=== PATIENT | female | born 1965 | race Caucasian/White ===

== ENCOUNTER 2017-04-04 15:01 | Emergency (ER) | payer BC ==
[2017-04-04] MEDS ORDERED: Ketorolac 60 MG/2 ML SDV IM ONE (15:19)
[2017-04-04] MEDS ORDERED: Ondansetron 4 MG/2 ML SDV IVPUSH ONE (15:23)
--- NOTE | 2017-04-04 15:23 | EDM.PDOC ---
ED HPI GENERAL MEDICAL PROBLEM - General Chief Complaint: Back Pain or Injury Stated Complaint: BACK PAIN Time Seen by Provider: 04/04/17 15:19 Source of Information: Reports: Patient History Limitations: Reports: No Limitations - History of Present Illness INITIAL COMMENTS - FREE TEXT/NARRATIVE: HISTORY AND PHYSICAL: [51-year-old female who presents with low back pain she awakened with this] History of Present Illness: [] Patient states that she has had herniated disks in the past and has history of this. Relates no specific injury that occurred. Review of Systems: As per history of present illness and below otherwise all systems reviewed and negative. Past medical history: As per history of present illness and as reviewed below otherwise noncontributory. Surgical history: As per history of present illness and as reviewed below otherwise noncontributory. Social history: No reported history of drug or alcohol abuse. Family history: As per history of present illness and as reviewed below otherwise noncontributory. Physical exam: Patient alert oriented sitting and moving quite carefully. Answers questions in full sentences without any shortness of breath. HEENT: Atraumatic, normocehpalic, pupils reactive, negative for conjunctival pallor or scleral icterus, mucous membranes moist, throat clear, neck supple, nontender, trachea midline. Lungs: Clear to auscultation, breath sounds equal bilaterally, chest non tender. Heart: S1S2, regular, negative for clicks, rubs, or JVD. Abdomen: Soft, nondistended, nontender. Negative for masses or hepatossplenmegaly. Negative for costovertebral tenderness. Bilateral to lower back L5-S1 area not tender on vertebrae itself but right and left of the vertebrae extending down buttocks. no radiculopathy to the lower extremity. Pelvis: Stable nontender. Genitourinary: Deferred. Rectal: Deferred Extremities: Atraumatic, negative for cords or calf pain. Neurovascular unremarkable. Neuro: Awake, alert, oriented. Cranial nerves II through XII unremarkable. Cerebellum unremarkable. Motor and sensory unremarkable throughout. Exam nonfocal. Diagnostics: [] Therapeutics: [Zofran by mouth Toradol IM Norflex IM] Impression: [Back pain] Plan: []Is charge to home Flexeril Diclofenac Follow-up with your medical provider Definitive disposition and diagnosis as appropriate pending reevaluation and review of above. Bilateral Lower Back Pain Score (Numeric/FACES): 8 - Related Data Allergies Allergy/AdvReac Type Severity Reaction Status Date / Time acetaminophen [From Percocet] Allergy Bleeding Verified 04/04/17 15:19 oxycodone HCl [From Percocet] Allergy Bleeding Verified 04/04/17 15:19 Penicillins Allergy Hives Verified 04/04/17 15:19 Sulfa (Sulfonamide Allergy Hives Verified 04/04/17 15:19 Antibiotics) IV dye Allergy Anaphylactic Uncoded 04/04/17 15:19 Shock Home Meds: Home Meds . [No Known Home Meds] 11/18/14 [History] Past Medical History - Past Surgical History Other GI Surgeries/Procedures: Diaphragmatic Hernia at Social & Family History - Tobacco Use Smoking Status *Q: Never Smoker Second Hand Smoke Exposure: No - Alcohol Use Days Per Week of Alcohol Use: 0 - Recreational Drug Use Recreational Drug Use: No ED ROS GENERAL - Review of Systems Review Of Systems: ROS reveals no pertinent complaints other than HPI. ED EXAM,LOWER BACK PAIN/INJURY - Physical Exam Exam: See Below (see dictation) Course - Vital Signs Last Recorded V/S: Last Vital Signs Temp 36.4 C 04/04/17 15:15 Pulse 118 H 04/04/17 15:15 Resp 18 04/04/17 15:15 BP 142/108 H 04/04/17 15:15 Pulse Ox 98 04/04/17 15:15 - Orders/Labs/Meds Orders: Active Orders 24 hr Category Date Time Status Orphenadrine [Norflex] Med 04/04/17 15:30 Active 60 mg IM Q12H Medication Orders Orphenadrine Citrate (Norflex) 60 mg IM Q12H CRISTO Last Admin: 04/04/17 15:44 Dose: 60 mg Meds: Medications Generic Name Dose Route Start Last Admin Trade Name Freq PRN Reason Stop Dose Admin Orphenadrine Citrate 60 mg 04/04/17 15:30 04/04/17 15:44 Norflex IM 60 mg Q12H CRISTO Administration Discontinued Medications Generic Name Dose Route Start Last Admin Trade Name Freq PRN Reason Stop Dose Admin Ketorolac Tromethamine 60 mg 04/04/17 15:19 04/04/17 15:44 Toradol IM 04/04/17 15:20 60 mg ONETIME ONE Administration Ondansetron HCl 4 mg 04/04/17 15:23 Zofran IVPUSH 04/04/17 15:24 ONETIME ONE Ondansetron HCl 4 mg 04/04/17 15:40 04/04/17 15:45 Zofran Odt PO 04/04/17 15:41 4 mg ONETIME ONE Administration Ondansetron HCl Confirm 04/04/17 15:40 Zofran Odt Administered 04/04/17 15:41 Dose 4 mg .ROUTE .STK-MED ONE Departure - Departure Time of Disposition: 15:55 Disposition: Home, Self-Care 01 Condition: Good Clinical Impression: Back pain Qualifiers: Back pain location: low back pain Chronicity: acute Back pain laterality: bilateral Sciatica presence: without sciatica Qualified Code(s): M54.5 - Low back pain - Discharge Information Instructions: Back Pain, Adult, [id number] Referrals: PCP,None [Primary Care Provider] - Forms: ED Department Discharge Additional Instructions: The following information is given to patients seen in the emergency department who are being discharged to home. This information is to outline your options for follow-up care. We provide all patients seen in our emergency department with a follow-up referral. The need for follow-up, as well as the timing and circumstances, are variable depending upon the specifics of your emergency department visit. If you don't have a primary care physician on staff, we will provide you with a referral. We always advise you to contact your personal physician following an emergency department visit to inform them of the circumstance of the visit and for follow-up with them and/or the need for any referrals to a consulting specialist. The emergency department will also refer you to a specialist when appropriate. This referral assures that you have the opportunity for followup care with a specialist. All of these measure are taken in an effort to provide you with optimal care, which includes your followup. Under all circumstances we always encourage you to contact your private physician who remains a resource for coordinating your care. When calling for followup care, please make the office aware that this follow-up is from your recent emergency room visit. If for any reason you are refused follow-up, please contact the [facility] emergency department at and asked to speak to the emergency department charge nurse. Please follow-up with your medical provider Prescription has been written for Flexeril 10 mg 1-tablet 3 times a day when necessary muscle spasm #15 Diclofenac 75 mg twice a day when necessary pain #14 no refill - My Orders Last 24 Hours: My Active Orders 04/04/17 15:30 Orphenadrine [Norflex] 60 mg IM Q12H - Assessment/Plan Last 24 Hours: My Active Orders 04/04/17 15:30 Orphenadrine [Norflex] 60 mg IM Q12H
[2017-04-04] MEDS ORDERED: Ondansetron 4 MG Tab.DIS ONE (15:40)
[2017-04-04] MEDS ORDERED: Ondansetron 4 MG Tab.DIS PO ONE (15:40)
[2017-04-04 16:22] VITALS: BP 130/91
== END 2017-04-04 16:20 | disposition home or self-care (01) ==
LOC: MW.ED 15:01
DX: M54.5 Low back pain (principal); Z88.6 Allergy status to analgesic agent; Z88.0 Allergy status to penicillin; Z88.2 Allergy status to sulfonamides; Z88.5 Allergy status to narcotic agent
CPT/HCPCS: 96372; 99283; A9270; J1885; J2360; 99282

== ENCOUNTER 2022-06-25 12:46 | Emergency (ER) | payer BC ==
[2022-06-25 13:20] VITALS: BP 138/94; PULSE 88
== END 2022-06-25 13:41 | disposition home or self-care (01) ==
LOC: MW.ED 12:46
DX: Z53.21 Procedure and treatment not carried out due to patient leaving prior to being seen by health care provider (principal)